=== PATIENT | female | born 1950 | race Caucasian/White ===

== ENCOUNTER → 2016-08-01 | Outpatient (CLI) | payer BC ==
[~2016-08-01] VITALS: Ht 160 cm; Wt 73.5 kg
[~2016-08-01] MED LIST: ALPRAZOLAM0.5 MG PO; AMBIEN 5MG TABLE5 MG PO; BIOTIN1000 MCG PO; BUSPAR; CALTRATE-600 W600 MG PO; CLARITIN 1010 MG/TAB PO; ELON MATRIX PO; FASTIN30 MG; FLOMAX 0.40.4 MG/CAP PO; HCTZ 25MG TAB25 MG PO; INNOPRAN XL80 MG PO; K-DUR20 MEQ PO; LEVAQUIN 5500 MG/TA1 PO; LEXAPRO 5MG5 MG PO; LORTAB 5/500 501 TAB PO; NEXIUM40 MG PO; NORCO 325 MG-7.1 TAB PO; OSCAL W/VIT D250 MG PO; PERCOCET 325 MG1 TA2 PO; ULTRAM 50MG TAB50 MG PO; ZOFRAN8 MG PO; [UNRECOGNIZED DRUG - OTHER]
[2016-08-01 13:32] VITALS: BP 127/66; PULSE 75
[2016-08-01 13:53] VITALS: BP 127/66; PULSE 75
== END ==
LOC: LIGHT 11:41
DX: E88.81 Metabolic syndrome and other insulin resistance (principal); I10 Essential (primary) hypertension; E66.3 Overweight; Z68.28 Body mass index [BMI] 28.0-28.9, adult; K21.9 Gastro-esophageal reflux disease without esophagitis

== ENCOUNTER 2016-12-15 13:05 | Emergency (ER) | payer BC ==
[~2016-12-15] VITALS: Ht 160 cm; Wt 77.3 kg
[~2016-12-15 13:05] MED LIST changes: -FLOMAX 0.40.4 MG/CAP PO; -ULTRAM 50MG TAB50 MG PO; -ZOFRAN8 MG PO
[2016-12-15 13:10] VITALS: BP 153/83; TEMP 98.2
[2016-12-15 14:02] LABS: BASO % 0.4 % (0.0-2.0); EOS # 0.2 (0.0-0.7); EOS % 1.9 % (0-4.0); GRAN # 6.6 (1.4-6.5); HEMATOCRIT 43.2 % (37.0-47.0); HEMOGLOBIN 14.1 g/dl (12.5-16.0); LYMPH # 2.4 (1.2-3.4); LYMPH % 23.6 % (20.0-51.0); MEAN CELL VOLUME 89 fl (80.0-100.0); MEAN CORPUSCULAR HEMOGLOBIN 29 pg (27.0-31.0); MEAN CORPUSCULAR HGB CONC 33 g/dl (33.0-37.0); MEAN PLATELET VOLUME 8.6 fl (7.4-10.4); MONO # 0.8 (0.1-0.6); PLATELET COUNT 240 K/mm3 (130-400); RED BLOOD COUNT 4.87 M/mm3 (4.10-5.30); WHITE BLOOD COUNT 10.1 K/mm3 (4.8-10.8)
[2016-12-15 14:08] LABS: PH 7 (5-8); URINE APPEARANCE Clear; URINE BILIRUBIN Negative (NEGATIVE); URINE BLOOD 1+ (NEGATIVE); URINE COLOR Straw; URINE GLUCOSE Negative (NEGATIVE); URINE KETONE Negative (NEGATIVE); URINE UROBILINOGEN Negative (NEGATIVE)
[2016-12-15 14:17] LABS: CALCIUM 9.6 mg/dL (8.4-10.2); CREATININE, serum 0.78 mg/dL (0.52-1.25); POTASSIUM 3.8 mmol/L (3.4-5.0)
[2016-12-15] MEDS ORDERED: ZOFRAN8 MG PO (16:02)
[2016-12-15] MEDS ORDERED: PERCOCET 325 MG1 TA2 PO (16:02)
[2016-12-15] MEDS ORDERED: ULTRAM 50MG TAB50 MG PO (16:02)
[2016-12-15] MEDS ORDERED: FLOMAX 0.40.4 MG/CAP PO (16:02)
[2016-12-15 16:31] VITALS: PULSE 88
== END 2016-12-15 16:32 | disposition home or self-care (01) ==
LOC: COL.ER 13:05
PROVIDERS: Emergency Medicine
DX: N13.2 Hydronephrosis with renal and ureteral calculous obstruction (principal); I10 Essential (primary) hypertension; Z87.442 Personal history of urinary calculi; F41.0 Panic disorder [episodic paroxysmal anxiety]
CPT/HCPCS: J1170; J2405; J7030; Q9967

== ENCOUNTER → 2017-03-27 | Outpatient (CLI) | payer BC ==
[~2017-03-27] VITALS: Ht 160 cm; Wt 76.4 kg
[~2017-03-27] MED LIST changes: +FLOMAX 0.40.4 MG/CAP PO; +ULTRAM 50MG TAB50 MG PO; +ZOFRAN8 MG PO
[2017-03-27 15:00] VITALS: BP 110/80; PULSE 68
== END ==
LOC: LIGHT 14:48
DX: E88.81 Metabolic syndrome and other insulin resistance (principal); I10 Essential (primary) hypertension; E66.9 Obesity, unspecified; Z68.29 Body mass index [BMI] 29.0-29.9, adult; Z71.3 Dietary counseling and surveillance; K21.9 Gastro-esophageal reflux disease without esophagitis

== ENCOUNTER → 2017-08-26 | Outpatient (CLI) | payer MEDICARE, BC | LOC: COL.RAD 07:52 | DX: M79.642 Pain in left hand (principal); M79.645 Pain in left finger(s) | CPT/HCPCS: J3301; Q9967 ==

== ENCOUNTER → 2019-02-25 | Outpatient (CLI) | payer MEDICARE, BC | LOC: MC.RAD 10:12 | DX: Z12.31 Encounter for screening mammogram for malignant neoplasm of breast (principal) ==

== ENCOUNTER 2019-11-25 16:37 | Day surgery (SDC) | payer MEDICARE, BC ==
[~2019-11-25] VITALS: Ht 160 cm; Wt 77.7 kg
[2019-11-25] VITALS (8 sets, daily range): BP systolic 111–126; BP diastolic 47–66; PULSE 78–103; TEMP 98.4
[2019-11-25 17:13] LABS: BASO % 0.2 % (0.0-2.0); EOS % 0.1 % (0-4.0); GRAN # 15.5 (1.4-6.5); GRAN % 83.9 % (42.2-75.2); HEMATOCRIT 45.2 % (37.0-47.0); HEMOGLOBIN 14.9 g/dl (12.5-16.0); LYMPH # 1.4 (1.2-3.4); LYMPH % 7.5 % (20.0-51.0); MEAN CELL VOLUME 89 fl (80.0-100.0); MEAN CORPUSCULAR HEMOGLOBIN 29 pg (27.0-31.0); MEAN CORPUSCULAR HGB CONC 33 g/dl (33.0-37.0); MEAN PLATELET VOLUME 8.7 fl (7.4-10.4); MONO # 1.5 (0.1-0.6); PLATELET COUNT 240 K/mm3 (130-400); RED BLOOD COUNT 5.11 M/mm3 (4.10-5.30); REDCELL DISTRIBUTION WIDTH-CV 13.2 % (11.5-14.5)
[2019-11-25 17:28] LABS: ALBUMIN 4.6 gm/dL (3.5-5.0); BILIRUBIN,TOTAL 1.7 mg/dL (0.0-1.0); C-REACTIVE PROTEIN 5.7 mg/dL (0.0-0.9); CREATININE, serum 0.72 (0.52-1.25); POTASSIUM 3.7 mmol/L (3.4-5.0)
[2019-11-25 17:40] LABS: COLLECTION METHOD CLEAN CATCH
[2019-11-25 17:55] LABS: PH 7 (5-8); SQUAMOUS EPITHELIAL 0-2 /hpf; URINE APPEARANCE Clear; URINE BACTERIA None Seen /hpf; URINE BILIRUBIN Negative (NEGATIVE); URINE BLOOD 2+ (NEGATIVE); URINE COLOR Straw; URINE GLUCOSE Negative (NEGATIVE); URINE KETONE Trace (NEGATIVE); URINE LEUKOCYTE ESTERASE Negative (NEGATIVE); URINE NITRATE Negative (NEGATIVE); URINE PROTEIN(semi-quant) Negative (NEGATIVE); URINE RBC 0-2 /hpf; URINE UROBILINOGEN Negative (NEGATIVE)
[2019-11-26 01:23] VITALS: BP 120/56; PULSE 90; TEMP 98.1
--- NOTE | 2019-11-26 04:32 | NUR ---
PATIENT IS ON HER SIDE RESTING
[2019-11-26 05:03] VITALS: BP 100/52; PULSE 79; TEMP 97.8
--- NOTE | 2019-11-26 05:35 | NUR ---
PATIENT GOT X1 DOSE OF IV MORPHINE AND THEN X1 DOSE OF NORCO JUST TO STAY ON TOP OF THE PAIN. SHE HAS BEEN RESTING SOUNDLY ON HER SIDE SINCE THE PAIN MEDICATION. IV FLUIDS ARE INFUSING. SHE GOT ONE DOSE OF ZOSYN IV. PATIENT HAS SOME MOUTH SWABS IN THE ROOM FOR HER TO MOISEN HER MOUTH. PATIENT HAS DENIED ANY OTHER NEEDS AND i WILL REPORT OFF TO DAY SHIFT UPON THEIR ARRIVAL.
[2019-11-26 07:47] VITALS: BP 102/48; PULSE 71; TEMP 97.7
--- NOTE | 2019-11-26 10:57 | NUR ---
Pt assessment completed and charted. Medications administered per MAR. Pt sitting in bed watching tv. Pt has IVF @125ml/hr running to LAC w/o complications. Pt denies pain at this time, states she "just feels sore". 4 lap sites covered w/ bandaids, CDI. Pt up to ambulate halls. No further concerns at this time.
--- NOTE | 2019-11-26 11:38 | NUR ---
Pt states she is having some pain to abdomen after walking [place], requesting something for pain. Received ALYSSA Maciel, per SEP.
[2019-11-26] MEDS ORDERED: NORCO 325 MG-51 TAB PO (11:53)
[2019-11-26 12:38] VITALS: BP 98/46; PULSE 58; TEMP 98.1
--- NOTE | 2019-11-26 15:21 | NUR ---
Pt up walking halls multiple times this afternoon after receiving pain medication. Pt doing well.
--- NOTE | 2019-11-26 16:19 | NUR ---
Pt denies any pain, tolerated lunch well, ambulating halls.
--- NOTE | 2019-11-26 16:27 | NUR ---
Hearing Aid Technician met with patient to discuss discharge planning. Patient lives outside of [place] with her , Robert (ph#[phone]). Patient sees Dr. Moore for primary care and obtains medications from [facility] with no difficulties. Patient is independent with ADLS and does not use any DME. Patient plans to return home upon discharge. No needs identified at this time.
[2019-11-26 16:32] VITALS: BP 96/56; PULSE 61; TEMP 97.5
[2019-11-26 19:30] VITALS: BP 107/48; PULSE 68; TEMP 97.8
--- NOTE | 2019-11-26 19:33 | NUR ---
Pt to discharge this evening, awaiting for to arrive. Discharge instructions discussed and reviewed with patient who verbalized understanding. All questions answered. LAC INT IV dc'd w/o complications. No further needs. silver chaser will escort pt out when arrives.
== END 2019-11-26 19:45 | disposition home or self-care (01) ==
LOC: SDCO 16:37 → COL.ER 16:37 → EDSTATUS 18:46 → JCC 22:09 → SDCO 22:09 → JCC 22:09 → SDCO 22:09 → JCC 11-26 19:45 → SDCO 11-26 19:45 → EDSTATUS 11-29 06:14
PROVIDERS: Emergency Medicine
DX: K35.891 Other acute appendicitis without perforation, with gangrene (principal); F41.0 Panic disorder [episodic paroxysmal anxiety]; M19.049 Primary osteoarthritis, unspecified hand; Z90.710 Acquired absence of both cervix and uterus; Z90.49 Acquired absence of other specified parts of digestive tract; Z87.891 Personal history of nicotine dependence; Z88.6 Allergy status to analgesic agent; Z88.8 Allergy status to other drugs, medicaments and biological substances; Z90.722 Acquired absence of ovaries, bilateral
CPT/HCPCS: OP; J0330; J1100; J2270; J2405; J2543; J2704; J3010; J7030; Q9967

== ENCOUNTER → 2020-03-15 | Outpatient (CLI) | payer MEDICARE, BC ==
[~2020-03-15] MED LIST changes: +NORCO 325 MG-51 TAB PO
== END ==
LOC: MC.RAD 11:34
DX: Z12.31 Encounter for screening mammogram for malignant neoplasm of breast (principal)

== ENCOUNTER → 2021-03-26 | Outpatient (CLI) | payer MEDICARE, BC | LOC: MC.RAD 10:35 | DX: Z12.31 Encounter for screening mammogram for malignant neoplasm of breast (principal) ==

== ENCOUNTER 2023-05-20 23:34 | Emergency (ER) | payer MEDICARE, BC ==
[~2023-05-20] VITALS: Ht 160 cm; Wt 77.3 kg
[2023-05-20 23:50] VITALS: BP 127/92; PULSE 76; TEMP 97.8
== END 2023-05-21 00:06 | disposition home or self-care (01) ==
LOC: COL.ER 23:34
DX: I83.891 Varicose veins of right lower extremity with other complications (principal)

== ENCOUNTER → 2023-08-14 | Outpatient (CLI) | payer MEDICARE, BC | LOC: MC.RAD 08:41 | DX: Z12.31 Encounter for screening mammogram for malignant neoplasm of breast (principal) ==